=== PATIENT | male | born 1980 | race Caucasian/White ===

== ENCOUNTER 2017-05-24 09:27 | Inpatient (IN) | payer MEDICAID ==
[~2017-05-24] VITALS: Ht 175.3 cm; Wt 108.9 kg
--- NOTE | 2017-05-24 09:29 | NUR ---
Pt biba [facility], placed in bed 2. [place] [employer] at bedside.
[2017-05-24 09:31] VITALS: BP 155/93
--- NOTE | 2017-05-24 09:32 | NUR ---
37M BIBA FROM HOME C/O SUICIAL IDEATION X TODAY; PT PLACED ON 5150 HOLD BY MOSES CHAVEZ AT 0915 TODAY. PER PD, PT WAS FOUND AT RESIDENCE SITTING IN A CHAIR WITH A ROPE AROUND HIS NECK. PER PD, PT CALLED PD TO HOUSE; PT NOTED WITH ERYTHEMA AROUND NECK FROM ROPE AT THIS TIME; NO ACTIVE BLEEDING OR OPEN WOUND TO NECK AT THIS TIME; PT STATES " MY FAMILY THINKS I WANT TO HURT THEM AND I DON'T KNOW WHY"; WHEN ASKED IF PATIENT HAVING IDEAS OF SUICIDAL IDEATION, PT STATES " MY MIND IS JUST BLANK RIGHT NOW"; PT AA&OX4, PERRLA AT THIS TIME; BL LUNG SOUNDS CLEAR, RR EVEN/UNLABORED, SKIN IS WARM/DRY/INTACT AT THIS TIME; PT C/O ACHING PAIN TO LEFT SHOULDER, NON-RADIATING, 2/10 FROM FALL X 1 YEAR; PT STATES NO N/V/D AT THIS TIME; PT CALM/COOPERATIVE AT THIS TIME; ALL POTENTIAL HARMFUL OBJECTS REMOVED FROM PATIENT'S ROOM AT THIS TIME; PT CHANGED INTO GOWN, RESTING IN BED WITH HOB ELEVATED AND IN LOWEST POSITION; POSITIONED FOR COMFORT; SITTER AT BEDSIDE; ER MD MADE AWARE OF STATUS. WILL CONTINUE TO MONITOR. Addendum: 05/24/17 at 0955 by InspireMD LEFT RADIAL PULSE +3, LEFT CAP REFILL IMMEDIATE, NO LOSS OF SENSATION OR ROM TO LEFT ARM AT THIS TIME.
--- NOTE | 2017-05-24 09:32 | NUR ---
PT NOT PLACED ON PULSE OXIMETRY OR INTERACTIVE PROJECT MANAGER AT THIS TIME WIRES REMOVED FROM PT'S ROOM; ER MD DR. HORVATH NOTIFIED.
--- NOTE | 2017-05-24 09:48 | NUR ---
LAB AT BEDSIDE.
--- NOTE | 2017-05-24 09:54 | NUR ---
ER MD DR. HORVATH EVALUATING PT AT BEDSIDE.
--- NOTE | 2017-05-24 09:55 | NUR ---
Arsalan love in ED - 05/24/17 at 0955 by MEDRAYO LEFT RADIAL PULSE +3, LEFT CAP REFILL IMMEDIATE, NO LOSS OF SENSATION OR ROM TO LEFT ARM AT THIS TIME.
[2017-05-24 10:12] LABS: HEMATOCRIT 44.5 % (36-52); HEMOGLOBIN 14.9 g/dL (12.0-18.0); MEAN CORPUSCULAR HEMOGLOBIN 30 pg (27-31); MEAN CORPUSCULAR HGB CONC 34 g/dL (33-37); MEAN CORPUSCULAR VOLUME 88 fL (80-94); PLATELET COUNT (AUTO) 221 K/uL (140-450); RED BLOOD CELL COUNT(AUTO) 5.05 MIL/uL (4.20-6.10); RED CELL DISTRIBUTION WIDTH 11.6 % (11.6-13.7); WHITE BLOOD COUNT (AUTO) 5.4 K/uL (4.8-10.8)
[2017-05-24 10:33] LABS: ALBUMIN 3.8 g/dL (3.4-5.0); ANION GAP 17.1 (8-16); ASPARTATE AMINOTRANSFERASE 23 U/L (15-37); CHLORIDE 104 mmol/L (98-107); CREATININE 0.8 mg/dL (0.7-1.3); GFR ARICAN-AMERICAN 139 mL/min (>90); GLUCOSE 106 mg/dL (74-106); POTASSIUM 4.1 mmol/L (3.5-5.1); SODIUM SERUM 142 mmol/L (136-145); TOTAL BILIRUBIN 0.5 mg/dL (0.0-1.0); UREA NITROGEN, BLOOD 16 mg/dL (7-18)
--- NOTE | 2017-05-24 10:33 | NUR ---
PT APPEARS TO BE RESTING COMFORTABLY IN BED; RR EVEN/UNLABORED; PT CALM AT THIS TIME; POSITIONED FOR COMFORT; SITTER AT BEDSIDE; WILL CONTINUE TO MONITOR.
[2017-05-24 10:35] LABS: ACETAMINOPHEN < 0.5 ug/ml (10-30); SALICYLATE < 2.8 mg/dL (2.8-20.0)
[2017-05-24 10:38] LABS: LYMPHOCYTES % (MANUAL) 23 % (20-46); MONOCYTES % (MANUAL) 7 % (5-12)
--- NOTE | 2017-05-24 11:35 | NUR ---
PT APPEARS TO BE RESTING COMFORTABLY IN BED; RR EVEN/UNLABORED; POSITIONED FOR COMFORT; SITTER IN PLACE; WILL CONTINUE TO MONITOR.
[2017-05-24 12:04] LABS: APPEARANCE,URINE CLEAR (CLEAR); BILIRUBIN,URINE NEGATIVE (NEGATIVE); BLOOD, URINE NEGATIVE (NEGATIVE); COLOR,URINE YELLOW (YELLOW); LEUKOCYTE ESTERASE ,URINE NEGATIVE (NEGATIVE); NITRITE, URINE NEGATIVE (NEGATIVE); UGLUCOSE NEGATIVE (NEGATIVE)
[2017-05-24 12:14] LABS: BARBITURATE, URINE NEG. ng/ml (NEG <=200); BENZODIAZEPINE, URINE NEG. ng/mL (NEG <=200); CANNABINOID, URINE NEG. ng/mL (NEG <=50); COCAINE, URINE NEG. ng/mL (NEG <=300); OPIATE, URINE NEG. ng/mL (NEG <=2000); PHENCYCLIDINE SCREEN,URINE NEG. ng/mL (NEG <=25)
--- NOTE | 2017-05-24 12:33 | NUR ---
PT APPEARS TO BE RESTING COMFORTABLY IN BED; RR EVEN/UNLABORED; POSITIONED FOR COMFORT; SITTER IN PLACE; WILL CONTINUE TO MONITOR.
[2017-05-24 12:59] LABS: RBC,URINE NONE SEEN /HPF (0-5); WBC,URINE 0-5 (RARE) /HPF (0-5)
--- NOTE | 2017-05-24 13:02 | NUR ---
Pt medically cleared by Dr. Kohli.
--- NOTE | 2017-05-24 13:30 | NUR ---
PT APPEARS TO BE RESTING COMFORTABLY IN BED; RR EVEN/UNLABORED; POSITIONED FOR COMFORT; SITTER IN PLACE; WILL CONTINUE TO MONITOR.
--- NOTE | 2017-05-24 14:30 | NUR ---
PT APPEARS TO BE RESTING COMFORTABLY IN BED; RR EVEN/UNLABORED; POSITIONED FOR COMFORT; SITTER IN PLACE; WILL CONTINUE TO MONITOR.
--- NOTE | 2017-05-24 15:30 | NUR ---
FOOD TRAY PROVIDED TO PT WITH STYROFOAM AND PLASTIC UTENSILS; PT APPEARS TO BE RESTING COMFORTABLY IN BED; RR EVEN/UNLABORED; POSITIONED FOR COMFORT; SITTER IN PLACE; WILL CONTINUE TO MONITOR.
--- NOTE | 2017-05-24 15:47 | NUR ---
PYSCHIATRIST DR. DAILY EVALUATING PT AT BEDSIDE.
[2017-05-24] MEDS ORDERED: LORazepam 1 MG TAB PO ONE (15:50)
--- NOTE | 2017-05-24 16:03 | NUR ---
PER DR. DAILY, PT TO STAY ON 5150 HOLD AT THIS TIME; ER MD DR. HOVRATH NOTIFIED.
--- NOTE | 2017-05-24 16:32 | NUR ---
PT APPEARS TO BE RESTING COMFORTABLY IN BED; RR EVEN/UNLABORED; POSITIONED FOR COMFORT; SITTER IN PLACE; WILL CONTINUE TO MONITOR.
[2017-05-24] MEDS ORDERED: ONDANSETRON 4 MG/2 ML VIAL IVP PRN (17:35)
[2017-05-24] MEDS ORDERED: DOCUSATE SODIUM 100 MG GELCAP PO PRN (17:35)
[2017-05-24] MEDS ORDERED: ACETAMINOPHEN 325 MG TAB PO PRN (17:35)
--- NOTE | 2017-05-24 18:20 | NUR ---
Patient will be admitted to care of DR. LANDAVERDE. Admited to MED-SURG. Will go to room 109B. Belongings list completed. Report to YANNI RASHID AT BEDSIDE.
[2017-05-24 18:30] VITALS: BP 127/89
--- NOTE | 2017-05-24 18:30 | NUR ---
RECEIVED PT FROM ER. BEDSIDE REPORT GIVEN. VITALS TAKEN, WITHIN NORMAL LIMIT. BP 127/89, 98%, HR 93, RR 20, PAIN 0/10. MRSA DONE. DINNER ORDERED FROM KITCHEN. BED ALARM SET. PT IS RESTING CALMLY IN BED. DENIES ANY SUICIDAL IDEATION AT THIS TIME. PT STATED HAVING A LITTLE ANXIETY AND ATIVAN REALLY HELPED. MADE PT AWARE HE HAS SCHEDULED PO ATIVAN Q8H, NEXT DOSE IS DUE BETWEEN 8-9PM. IF HE IS HAVING A LOT OF ANXIETY, WE HAVE MEDICATION FOR THAT, TOO. PT WAS ORIENTED TO THE ROOM. NO S/S OF ACUTE DISTRESS. WILL CONTINUE TO MONITOR. 1:1 SITTER AT BEDSIDE.
[2017-05-24] MEDS: NACL 0.9% 1,000 ML IV SCH (18:50)
--- NOTE | 2017-05-24 19:30 | NUR ---
BEDSIDE REPORT GIVEN TO HEAVY TRUCK MECHANIC NURSE. IVF INFUSING WELL. PT IN STABLE CONDITION.
--- NOTE | 2017-05-24 19:31 | NUR ---
RECEIVED REPORT AT BEDSIDE FROM DAY SHIFT NURSE. PT A/OX4, ON ROOM AIR. PT AMBULATORY WITH STEADY GAIT. PT HAS IV TO LEFT HAND 20G, INFUSING NS@120ML/HR. PT SKIN IS INTACT. SAFETY PRECAUTIONS IN PLACE. UPDATED BOARD. SUICIDE PRECAUTIONS IN PLACE, 1:1 SITTER IN ROOM. VITAL SIGNS WITHIN NORMAL LIMITS. PT IN STABLE CONDITION, NO SIGNS OF DISTRESS NOTED. BED IN LOW POSITION, CALL LIGHT WITHIN REACH. WILL CONTINUE TO MONITOR.
[2017-05-24 20:00] VITALS: BP 139/90
[2017-05-24] MEDS: LORazepam 1 MG TAB PO SCH (21:09)
[2017-05-24] MEDS: QUEtiapine FUMARATE 25 MG TAB PO SCH (21:10)
--- NOTE | 2017-05-24 21:15 | NUR ---
ADMINISTERED SCHEDULED MEDICATIONS, PT TOLERATED WELL. PT IN STABLE CONDITION, NO SIGNS OF DISTRESS NOTED. BED IN LOW POSITION, CALL LIGHT WITHIN REACH. WILL CONTINUE TO MONITOR.
[2017-05-24 23:27] LABS: AMYLASE 39 U/L (25-115); CHOL/HDL RATIO 4.3 (1-4.5); FREE T4 (FREE THYROXINE) 1.15 ng/dL (0.76-1.46); HDL CHOLESTEROL 40 mg/dL (40-60); LDL (CALC) 93 mg/dL (60-100); LIPASE 145 U/L (73-393); MAGNESIUM 1.9 mg/dL (1.8-2.4); PHOSPHORUS 4.2 mg/dL (2.5-4.9); THYROID STIMULATING HORMONE 0.88 uIU/mL (0.34-3.74); TRIGLYCERIDES 185 mg/dL (30-150)
--- NOTE | 2017-05-25 | NUR ---
PT VITAL SIGNS STABLE. PT IN STABLE CONDITION, NO SIGNS OF DISTRESS NOTED. 1:1 SITTER IN ROOM, BED IN LOWEST POSITION. WILL CONTINUE TO MONITOR.
[2017-05-25 00:52] VITALS: BP 135/88
[2017-05-25] MEDS: NACL 0.9% 1,000 ML IV SCH (02:55)
[2017-05-25] MEDS: LORazepam 1 MG TAB PO SCH ×3 (05:13→21:36)
--- NOTE | 2017-05-25 05:15 | NUR ---
ADMINISTERED SCHEDULED MEDICATION, PT TOLERATED WELL. 1:1 SITTER IN ROOM. PT IN STABLE CONDITION, NO SIGNS OF DISTRESS NOTED.
--- NOTE | 2017-05-25 07:10 | NUR ---
ENDORSED PT TO DAY SHIFT RN FOR CONTINUITY OF CARE, PT IN STABLE CONDITION.
--- NOTE | 2017-05-25 07:15 | NUR ---
RECEIVED REPORT FROM NIGHTSHIFT NURSE AT BEDSIDE. PATIENT IS ASLEEP AT THIS TIME BUT AROUSABLE. PATIENT IS A&OX4. PATIENT SHOWS NO IDEATION OF HURTING HIMSELF AT THIS TIME. SUICIDE PRECAUTION IN PLACE. PATIENT IS ON 1:1 SITTER. PATIENT IS IN STABLE CONDITION. BED IS LOWERED AND CALL LIGHT IS WITHIN REACH. WILL CONTINUE TO MONITOR PATIENT.
[2017-05-25 07:22] LABS: BASOPHILS # (AUTO) 0.2 K/uL (0.00-0.22); BASOPHILS % (AUTO) 3.7 % (0.0-2.0); EOSINOPHILS # (AUTO) 0.2 K/uL (0-0.4); EOSINOPHILS % (AUTO) 3.4 % (0.0-4.0); LYMPHOCYTES # (AUTO) 1.8 K/uL (2.0-11.5); LYMPHOCYTES % (AUTO) 36.2 % (20.5-51.1); MEAN CORPUSCULAR HEMOGLOBIN 31 pg (27-31); MEAN CORPUSCULAR HGB CONC 34 g/dL (33-37); MEAN CORPUSCULAR VOLUME 90 fL (80-94); MONOCYTES # (AUTO) 0.4 K/uL (0.8-1.0); MONOCYTES % (AUTO) 7.7 % (1.7-9.3); NEUTROPHILS # (AUTO) 2.5 K/uL (1.8-7.7); PLATELET COUNT (AUTO) 186 K/uL (140-450); RED BLOOD CELL COUNT(AUTO) 4.53 MIL/uL (4.20-6.10); RED CELL DISTRIBUTION WIDTH 11.9 % (11.6-13.7); WHITE BLOOD COUNT (AUTO) 5.1 K/uL (4.8-10.8)
[2017-05-25 07:45] LABS: ANION GAP 11.2 (8-16); CARBON DIOXIDE 28.9 mmol/L (21-32); POTASSIUM 4.1 mmol/L (3.5-5.1)
[2017-05-25 07:46] LABS: CREATININE 0.9 mg/dL (0.7-1.3)
[2017-05-25 08:00] VITALS: BP 129/71
--- NOTE | 2017-05-25 08:03 | NUR ---
SPOKE WITH ART FROM [facility]. HE IS AWARE OF THIS PATIENT AND IS LOOKING FOR PLACEMENT. HE ASKED ME TO FAX HIM THE FACE SHEET, ORDER AND 6460 HOLD WHICH I DID TO [phone] PHONE [phone].
--- NOTE | 2017-05-25 08:41 | NUR ---
PATIENT HAS BEEN SCREENED AND CATEGORIZED LOW NUTRITION RISK. PATIENT WILL BE SEEN WITHIN 7 DAYS OF ADMISSION. 05/30/[address]
[2017-05-25] MEDS: MULTIVITAMIN 1 TAB PO SCH (09:50)
[2017-05-25] MEDS: THIAMINE 100 MG TAB PO SCH (09:50)
[2017-05-25] MEDS: PARoxetine 10 MG TAB PO SCH (09:51)
[2017-05-25] MEDS: QUEtiapine FUMARATE 25 MG TAB PO SCH ×2 (09:51→21:36)
[2017-05-25] MEDS: FOLIC ACID 1 MG TAB PO SCH (09:52)
[2017-05-25 10:01] LABS: PHOSPHORUS 3.2 mg/dL (2.5-4.9)
[2017-05-25] MEDS: LORazepam 2 MG/ML VIAL IVP PRN ×2 (10:09→15:08)
--- NOTE | 2017-05-25 13:00 | NUR ---
PATIENT IS ASLEEP AT THIS TIME. PATIENT IS IN STABLE CONDITION. 1:1 SITTER IS PRESENT. WILL CONTINUE TO MONITOR PATIENT.
[2017-05-25 14:32] LABS: PROTHROMBIN TIME 9.3 secs (10.8-13.4)
[2017-05-25] MEDS: LACTULOSE 20 GM/30 ML UDC PO SCH ×2 (14:40→15:07)
[2017-05-25 15:56] VITALS: BP 129/75
--- NOTE | 2017-05-25 19:16 | NUR ---
PT KEPT CLEAN, DRY AND COMFORTABLE. NEEDS ATTENDED. NO SUICIDAL IDEATION NOTED ON SHIFT. WILL ENDORSE TO NEXT SHIFT. PT ON STABLE CONDITION. FOR CONTINUITY OF CARE. NO SOB NOTED ON SHIFT. DENIES ANY PAIN OR DISCOMFORT AT THIS TIME.
--- NOTE | 2017-05-25 19:30 | NUR ---
Patient's Plan of Care was discussed and reviewed with SANDER AND BUFFER: LINUS
--- NOTE | 2017-05-25 20:10 | NUR ---
CHELSEA. REPORT FROM CHARGE NURSE YUE, PATIENT IS SLEEPING COMFORTABLY IN BED, RESPIRATION EVEN AND UNLABORED. IV SALINE LOCK AT THE LEFT HAND G 20, PATENT AND INTACT. NO APPEARANCE OF PAIN NOTED. SITTER AT THE BEDSIDE MONITORING PATIENT. SITTING ON THE CHAIR IN THE ROOM. WILL CONTINUE TO MONITOR BEING THE NEW NURSE SITTER FOR THE PATIENT, WILL ENSURE SAFETY DURING SHIFT.
--- NOTE | 2017-05-25 20:20 | NUR ---
FATHER CAME AND WAKEN UP PATIENT. DOES NOT LIKE FOOD IN THE MEAL TRAY. SANDWICH GIVEN INSTEAD.
--- NOTE | 2017-05-25 20:30 | NUR ---
A/OX2, CANNOT REMEMBER WHAT DAY AND DATE TODAY BUT KNOWS THE YEAR. VERBALIZED NO INTENTION OF HARMING SELF AND OTHERS, NOT HEARING VOICES BUT FEELS ANXIOUS AND DEPRESSED.
--- NOTE | 2017-05-25 21:00 | NUR ---
LEFT THE ROOM TO GO HOME.
--- NOTE | 2017-05-25 21:36 | NUR ---
NIGHT MEDICATIONS GIVEN, COOPERATIVE.
--- NOTE | 2017-05-25 22:30 | NUR ---
SLEEPING COMFORTABLY IN BED, SNORING.
[2017-05-26] VITALS: BP 140/90
--- NOTE | 2017-05-26 02:00 | NUR ---
STILL SLEEPING COMFORTABLY IN BED.
[2017-05-26] MEDS: LORazepam 1 MG TAB PO SCH ×4 (05:39→21:20)
--- NOTE | 2017-05-26 05:39 | NUR ---
WAKEN UP TO TAKE AM MEDICATION, WENT BACK TO SLEEP AFTER DRINKING PILL.
--- NOTE | 2017-05-26 06:00 | NUR ---
STILL SLEEPING COMFORTABLY IN BED. RESPIRATION EVEN AND UNLABORED. STAINED GLASS INSTALLER CAME TO DRAW BLOOD. COOPERATIVE. CONDITION REMAIN STABLE. NO SUICIDAL BEHAVIOR NOTED DURING SHIFT. ENDORSED TO AM SITTER FOR MONITORING.
[2017-05-26 06:31] LABS: HEMATOCRIT 44.3 % (36-52); HEMOGLOBIN 14.8 g/dL (12.0-18.0); MEAN CORPUSCULAR HEMOGLOBIN 30 pg (27-31); MEAN CORPUSCULAR HGB CONC 33 g/dL (33-37); MEAN CORPUSCULAR VOLUME 90 fL (80-94); PLATELET COUNT (AUTO) 226 K/uL (140-450); RED BLOOD CELL COUNT(AUTO) 4.91 MIL/uL (4.20-6.10); WHITE BLOOD COUNT (AUTO) 4.8 K/uL (4.8-10.8)
--- NOTE | 2017-05-26 07:05 | NUR ---
ENDORSED TO YANNI VAZQUEZ FOR CONTINUITY OF CARE.
--- NOTE | 2017-05-26 07:15 | NUR ---
REPORT RECEIVED FROM AUTOMATION TEST ENGINEER, PT SLEEPING QUIETLY IN NAD, RESP EVEN UNLABORED ON RA, SKIN WARM DRY COLOR WNL, AROUSES EASILY, NO C/O PAIN OR DISCOMFORT, PLAN OF CARE REVIEWED, INITIAL ASSESSMENT DONE, 1:[address], CALL PORTILLO WITHIN REACH, SIDE RAILS UP, BED LOCKED IN LOW POSITION, WILL CONTINUE TO MONITOR.
[2017-05-26 07:51] LABS: ANION GAP 10.1 (8-16); CARBON DIOXIDE 29.1 mmol/L (21-32); POTASSIUM 4.2 mmol/L (3.5-5.1)
[2017-05-26 07:52] LABS: CREATININE 0.9 mg/dL (0.7-1.3); MAGNESIUM 2.1 mg/dL (1.8-2.4); PHOSPHORUS 3.3 mg/dL (2.5-4.9)
[2017-05-26 08:00] VITALS: BP 127/80
[2017-05-26] MEDS: LORazepam 2 MG/ML VIAL IVP PRN ×3 (08:13→20:34)
[2017-05-26] MEDS: THIAMINE 100 MG TAB PO SCH (08:13)
[2017-05-26] MEDS: MULTIVITAMIN 1 TAB PO SCH (08:13)
[2017-05-26] MEDS: FOLIC ACID 1 MG TAB PO SCH (08:13)
[2017-05-26] MEDS: CALCIUM CARBONATE 500 MG TAB PO SCH (08:13)
[2017-05-26] MEDS: QUEtiapine FUMARATE 25 MG TAB PO SCH (08:14)
[2017-05-26] MEDS: PARoxetine 10 MG TAB PO SCH (08:21)
--- NOTE | 2017-05-26 08:23 | NUR ---
PT SITTING UP EATING BREAKFAST, STATES HE FEELS VERY ANXIOUS, ATIVAN PRN GIVEN AT THIS TIME.
[2017-05-26 08:50] LABS: EOSINOPHILS % (MANUAL) 2 % (0-4); LYMPHOCYTES % (MANUAL) 41 % (20-46); MONOCYTES % (MANUAL) 4 % (5-12)
--- NOTE | 2017-05-26 12:45 | NUR ---
PT SLEEPING, ATIVAN HELD AT THIS TIME.
--- NOTE | 2017-05-26 14:30 | NUR ---
DR ORELLANA AT BEDSIDE
--- NOTE | 2017-05-26 14:45 | NUR ---
PT ASKED TO CALL HIS , PHONE PROVIDED TO MAKE A CALL.
--- NOTE | 2017-05-26 15:37 | NUR ---
LEFT BEDSIDE TO GO HOME SAYING "I DON'T THINK HE WANTS TO SEE ME TODAY".
[2017-05-26 15:59] VITALS: BP 135/83
--- NOTE | 2017-05-26 16:12 | NUR ---
PT STATES HE FEELS VERY "ANXIOUS AND I MIGHT START RUNNING", PT REQUESTS IV ATIVAN, IV ATIVAN GIVEN PER PRN ORDER, PT STATES IT HELPS ME CALM DOWN, PT VERBALLY AGREES NOT TO RUN AWAY OR HURT HIMSELF, PT REMAINS ON 1;1 WATCH, ASKED TO CALL , PHONE PROVIDED TO MAKE A CALL, PT STATES HIS " AND 16YO DAUGHTER IS COMING TO VISIT AND BRING ME FOOD", PT SPEAKS CALMLY AND CLEARLY WITH SLIGHT SMILE, NO AGGRESSIVE BEHAVIOR NOTED. WILL CONTINUE TO MONITOR.
--- NOTE | 2017-05-26 17:05 | NUR ---
PT SLEEPING QUIETLY IN NAD, RESP EVEN UNLABORED, PT REMAINS ON 1:1 WATCH, SAFETY MEASURES IN PLACE, WILL CONTINUE TO MONITOR.
--- NOTE | 2017-05-26 18:14 | NUR ---
DAUGHTER AND TO BEDSIDE.
--- NOTE | 2017-05-26 18:40 | NUR ---
UP OUT OF BED WITHOUT PROBLEM, AMBULATES WITH STEADY GAIT, GOWN CHANGED, BLANKET CHANGED, AND DAUGHTER REMAINS AT BEDSIDE.
--- NOTE | 2017-05-26 19:18 | NUR ---
REPORT GIVEN TO WINDOW INSTALLER NURSE GAMALIEL BHAT IN STABLE CONDITION.
--- NOTE | 2017-05-26 19:19 | NUR ---
ASSUMED CARE OF PATIENT NURSE AND SITTER FOR THE SHIFT. RECD. RESTING IN BED, AWAKE, ALERT, CONVERSING WITH , DAUGHTER SITTING NEAR WALL SIDE. IV SALINE LOCK AT THE LEFT HAND G20, PATENT AND INTACT. STILL VERY DEPRESSED, STRETCHED OUT HIS LEFT ARM AND STATED "CAN YOU INJECT WITH SOMETHING THAT WOULD STOP MY HEART?" PLAN OF CARE FOR THE SHIFT DISCUSSED. VERBALIZED UNDERSTANDING. DENIES PAIN AT THIS TIME 010.
--- NOTE | 2017-05-26 19:30 | NUR ---
Patient's Plan of Care was discussed and reviewed with NEW BUSINESS CLERK: LINUS.
--- NOTE | 2017-05-26 19:45 | NUR ---
AND DAUGHTER LEFT ROOM.
--- NOTE | 2017-05-26 20:00 | NUR ---
PATIENT COVERING HIS BODY AND FACE WITH A BLANKET, NOTICE KEEP ON MOVING. WENT TO PATIENT AND ASKED HOW HE IS. TAKE OUT BLANKET FROM FACE AND FOUND PATIENT'S NECK TIED TO THE SIDE RAILS. CALLED FOR HELP [facility]NI RUIZ AND [facility] N[facility] CAME. ADVISED PATIENT TO RELAX AND SPIRITUAL ENCOURAGEMENT GIVEN. Addendum: 05/26/17 at 2303 by Felicia Samaniego LVN CORRECTION OF ENTRY: FOUND PATIENT'S NECK TIED TO THE SIDE RAIL WITH A BLANKET.
[2017-05-26 20:30] VITALS: BP 127/70
--- NOTE | 2017-05-26 20:34 | NUR ---
VERY AGITATED, MEDICATED WITH ATIVAN ORDERED. GIVEN BY YANNI BHAT.
--- NOTE | 2017-05-26 20:45 | NUR ---
WENT TO BATHROOM, ABLE TO HAVE BM.
[2017-05-26] MEDS ORDERED: QUEtiapine FUMARATE 25 MG TAB PO SCH (21:00)
--- NOTE | 2017-05-26 21:00 | NUR ---
WANTS TO GO OUT OF ROOM AND WALK IN THE HALLWAY. EXPLAINED THAT IT IS THE PROTOCOL FOR PATIENT ON 5150, NOT TO WALK IN THE HALLWAY.
--- NOTE | 2017-05-26 21:05 | NUR ---
WALK OUT OF THE ROOM, FOLLOWED PATIENT, ROASTER SUPERVISOR GAVE AND CHARGE NURSE YUE CAME. PATIENT IS WANTS TO GO OUT OF ALARM DOORS. ROASTER SUPERVISOR GAVE PERSUADE PATIENT TO GO BACK TO HIS ROOM BUT REFUSED. JUST REMAIN STANDING AND DOES NOT WANT TO GO BACK NO MATTER A LOT OF EXPLANATION GIVEN.
--- NOTE | 2017-05-26 21:15 | NUR ---
NURSE MOTION GRAPHICS DESIGNER REQUESTED TED TO CALL FOR YOKASTA TRACY.
[2017-05-26] MEDS ORDERED: HALOPERIDOL IM 5 MG/ML VIAL IM PRN (21:20)
--- NOTE | 2017-05-26 21:20 | NUR ---
SECURITY CAME WITH AND ALSO ER TEAM, STILL REFUSING TO GO BACK TO HIS ROOM. ER CHARGE NURSE ASSISTED PATIENT TO HIS ROOM BUT REFUSED TO GO BACK TO BED.
--- NOTE | 2017-05-26 21:25 | NUR ---
MOSES VILLAGOMEZS CAME REQUESTED BY MOVERS MARISSA. SPOKE WITH PATIENT, DISCUSSED PATIENT 5150 CASE, BUT STILL REFUSED TO GO BACK TO BED. LEFT AFTER FEW MINUTES.
[2017-05-26] MEDS ORDERED: HALOPERIDOL IM 5 MG/ML VIAL ONE (21:30)
--- NOTE | 2017-05-26 21:31 | NUR ---
SITTING IN CHAIR, AGREED TO BE MEDICATED WITH HALDOL 5 MG. IM ORDERED BY DR. PEÑA.
--- NOTE | 2017-05-26 21:34 | NUR ---
ABLE TO PERSUADE TO GO BACK AND LAY IN BED.
--- NOTE | 2017-05-26 21:50 | NUR ---
SLEEPING COMFORTABLY IN BED.
[2017-05-27] VITALS: BP 112/84
--- NOTE | 2017-05-27 | NUR ---
STILL SLEEPING COMFORTABLY, VS STABLE.
[2017-05-27] MEDS: LORazepam 1 MG TAB PO SCH ×3 (04:41→20:20)
--- NOTE | 2017-05-27 04:41 | NUR ---
WAKEN UP, DUE PO ATIVAN GIVEN. WENT BACK TO SLEEP.
--- NOTE | 2017-05-27 07:05 | NUR ---
STILL SLEEPING COMFORTABLY. CONDITION REMAIN STABLE. ENDORSED TO YANNI VAZQUEZ FOR CONTINUITY OF CARE.
--- NOTE | 2017-05-27 07:25 | NUR ---
REPORT RECEIVED FROM TIRE CORD WEAVER, PT SLEEPING QUIETLY IN NAD, RESP EVEN UNLABORED ON RA, SKIN WARM DRY COLOR WNL, IV SL'D, SITE WNL, PT AROUSED EASILY, VERBALLY CONTRACTS FOR SAFETY, PLAN OF CARE REVIEWED, DENIES PAIN OR DISCOMFORT, SAFETY MEASURES IN PLACE, PT WITH 1:1 SITTER AT BEDSIDE, SIDE RAILS UP, BED LOCKED IN LOW POSITION, WILL CONTINUE TO MONITOR.
[2017-05-27 08:00] VITALS: BP 103/58
[2017-05-27] MEDS: PARoxetine 10 MG TAB PO SCH (09:21)
[2017-05-27] MEDS: FOLIC ACID 1 MG TAB PO SCH (09:22)
[2017-05-27] MEDS: THIAMINE 100 MG TAB PO SCH (09:22)
[2017-05-27] MEDS: QUEtiapine FUMARATE 100 MG TAB PO SCH ×2 (09:22→20:20)
[2017-05-27] MEDS: CALCIUM CARBONATE 500 MG TAB PO SCH (09:22)
[2017-05-27] MEDS: MULTIVITAMIN 1 TAB PO SCH (09:22)
--- NOTE | 2017-05-27 09:22 | NUR ---
AM MEDS GIVEN, PT ASIYA WELL, PT STATES HE WILL EAT BREAKFAST LATER, DENIED ANY IMMEDIATE NEEDS AND WENT BACK TO SLEEP, PT REMAINS ON 1:1 WATCH, ALL SAFETY AND SUICIDE PRECAUTIONS IN PLACE, WILL CONTINUE TO MONITOR.
--- NOTE | 2017-05-27 11:20 | NUR ---
PT SLEEPING QUIELTY IN NAD, REP EVEN UNLABORED ON ROOM AIR, SKIN WARM DRY COLOR WNL, PT REMAINS ON 1:1 WATCH, NO C/O PAIN OR DISCOMFORT, WILL CONTINUE TO MONITOR.
--- NOTE | 2017-05-27 12:48 | NUR ---
PT SITTING UP EATING LUNCH, DENIES PAIN OR DISCOMFORT, DENIES ANY IMMMEDIATE NEEDS, WILL CONTINUE TO MONITOR.
--- NOTE | 2017-05-27 15:20 | NUR ---
[facility] NO [facility] AVAILABLE AT THIS TIME BUT REQUESTED THE LATEST PSYCH EVAL , DR ORELLANA PSYCHOLOGIST EVALUATED PATIENT ON 05/26 FAXED THE PROGRESS NOTE THAT STATED PT NEEDS [phone] TO [phone].
[2017-05-27 16:00] VITALS: BP 104/59
--- NOTE | 2017-05-27 18:06 | NUR ---
PT RESTING QUIETLY IN NAD, RESP EVEN UNLABORED, SKIN WARM DRY COLOR WNL, PT APPEARED TO BE SLEEPING MOST OF THE DAY TODAY, AROUSED FOR LUNCH AND DINNER, AMBULATED TO BATHROOM X2 WITH STEADY GAIT, NO AGGRESSIVE BEHAVIORS OR SUICIDE ATTEMPT TODAY, PT REMAINS ON 1;1 WATCH, ALL SAFETY AND SUICIDE PRECAUTIONS IN PLACE, WILL CONTINUE TO MONITOR.
--- NOTE | 2017-05-27 19:19 | NUR ---
REPORT GIVEN TO SALES ENABLEMENT LEAD NURSE GAMALIEL RAE IN STABLE CONDITION WITH 1:1 SITTER AT BEDSIDE.
--- NOTE | 2017-05-27 19:20 | NUR ---
PATIENT IS CURRENTLY RESTING IN BED AWAKE ALERT ORIENTED SITTER MARY JANE RAY 1:1 SITTER WATCHING OVER THE PATIENT. PATIENT CALM AT THIS.SAFETY ENVIRONMENT PROVIDED FOR THE PATIENT CALL LIGHT KEPT AWAY FROM THE PATIENT FOR SAFETY DOESN'T NEED IT HAS A SITTER AT BEDSIDE ATTENDING TO HIS NEEDS.
--- NOTE | 2017-05-27 19:35 | NUR ---
PATIENT FATHER CAME TO VISIT THE PATIENT AND SAT NEXT TO THE PATIENT.PATIENT CONTINUES TO BE MONITORED.
[2017-05-27 20:00] VITALS: BP 125/76
--- NOTE | 2017-05-27 20:00 | NUR ---
Patient's Plan of Care was discussed and reviewed with TOBACCO SIZER: KYRA SALAZAR
--- NOTE | 2017-05-27 20:20 | NUR ---
PATIENT REQUESTED TO HAVE HIS NIGHT TIME I ADMINISTERED HIS SCHEDULED NIGHT TIME MEDICATION. I ASKED THE PATIENT HOW ARE YOU FEELING IN SER[place]AN AND PATIENT STATES,"IM FEELING A LITTLE MORE CALM BUT STILL DEPRESSED." WILL CONTINUE TO MONITOR.
--- NOTE | 2017-05-27 23:32 | NUR ---
PATIENT SLEEPING COMFORTABLY IN BED SLEEPING. DIDIER RAY AT BEDSIDE. WILL CONTINUE TO MONITOR.
--- NOTE | 2017-05-28 00:54 | NUR ---
PATIENT SLEEPING COMFORTABLY IN BED CURRENTLY MONITORED BY MARY JANE HALEY SHE IS THE SITTER 1:1. NO SUICIDAL ATTEMPT OF THOUGHT VOICED BY PATIENT UP UNTIL NOW.
--- NOTE | 2017-05-28 02:00 | NUR ---
ROUNDS DONE PATIENT SLEEPING COMFORTABLY IN BED WILL CONTINUE TO MONITOR.
--- NOTE | 2017-05-28 04:16 | NUR ---
PATIENT SLEEPING DRILLING ASSISTANT SUDHA WATCHING OVER THE PATIENT.WILL CONTINUE TO MONITOR.
[2017-05-28 05:02] VITALS: BP 122/81
[2017-05-28] MEDS: LORazepam 1 MG TAB PO SCH ×3 (05:02→21:58)
--- NOTE | 2017-05-28 05:47 | NUR ---
PATIENT IS CURRENTLY SLEEPING IN BED PATIENT NOT VOICING ANY SUICIDAL THOUGHTS AND NO SUICIDE ATTEMPTS ON MY SHIFT.PATIENT NEEDS MET CONTINUES TO HAVE SITTER 1:1 SUDHA AT BEDSIDE.
--- NOTE | 2017-05-28 06:24 | NUR ---
DARIUS FROM THE LAB CURRENTLY DRAWING PATIENT'S LABS.PATIENT SLEEPING EASILY AWAKENED THIS MORNING STABLE. HAD NO SUICIDE ATTEMPT DURING THE NIGHT OR VOICED ANY ATTEMPT TO HARM HIMSELF OR STAFF.NO HALLUCINATIONS REPORTED DURING THE NIGHT. NURSE WALTON WILL BE TAKING CARE OF THE PATIENT AND WILL BE THE 1:1 SITTER AND REPORT WAS DONE AT BEDSIDE.
--- NOTE | 2017-05-28 06:24 | NUR ---
ASSUMED CONTINUITY OF CARE. NO SIGNS AND SYMPTOMS OF ACUTE DISTRESS NOTED. INITIAL ASSESSMENT DONE. CALM, QUIET AND COOPERATIVE. NO SUICIDAL THOUGHTS OBSERVED. KEEP SURROUNDINGS SAFE. EXPLAINED DIAGNOSIS, PLAN OF CARE, PAIN MANAGEMENT TEACHING, BED/BATHROOM. VERBALIZED UNDERSTANDING. CLOSELY MONITORED 1:1.
[2017-05-28 07:05] LABS: BASOPHILS # (AUTO) 0.3 K/uL (0.00-0.22); BASOPHILS % (AUTO) 4.9 % (0.0-2.0); EOSINOPHILS # (AUTO) 0.2 K/uL (0-0.4); HEMATOCRIT 45.8 % (36-52); HEMOGLOBIN 15.6 g/dL (12.0-18.0); LYMPHOCYTES # (AUTO) 2.1 K/uL (2.0-11.5); LYMPHOCYTES % (AUTO) 33.7 % (20.5-51.1); MEAN CORPUSCULAR HEMOGLOBIN 30 pg (27-31); MEAN CORPUSCULAR HGB CONC 34 g/dL (33-37); MEAN CORPUSCULAR VOLUME 89 fL (80-94); MONOCYTES # (AUTO) 0.5 K/uL (0.8-1.0); MONOCYTES % (AUTO) 7.3 % (1.7-9.3); NEUTROPHILS # (AUTO) 3.2 K/uL (1.8-7.7); NEUTROPHILS % (AUTO) 51.1 % (42.2-75.2); PLATELET COUNT (AUTO) 251 K/uL (140-450); RED BLOOD CELL COUNT(AUTO) 5.14 MIL/uL (4.20-6.10); RED CELL DISTRIBUTION WIDTH 11.8 % (11.6-13.7); WHITE BLOOD COUNT (AUTO) 6.3 K/uL (4.8-10.8)
[2017-05-28 07:47] LABS: ANION GAP 11.5 (8-16); CARBON DIOXIDE 30.9 mmol/L (21-32); CREATININE 0.9 mg/dL (0.7-1.3); POTASSIUM 4.4 mmol/L (3.5-5.1)
[2017-05-28 08:00] VITALS: BP 125/71
[2017-05-28 08:20] LABS: MAGNESIUM 2.1 mg/dL (1.8-2.4); PHOSPHORUS 3.2 mg/dL (2.5-4.9)
[2017-05-28] MEDS: FOLIC ACID 1 MG TAB PO SCH (08:34)
[2017-05-28] MEDS: THIAMINE 100 MG TAB PO SCH (08:34)
[2017-05-28] MEDS: CALCIUM CARBONATE 500 MG TAB PO SCH (08:34)
[2017-05-28] MEDS: MULTIVITAMIN 1 TAB PO SCH (08:34)
[2017-05-28] MEDS: QUEtiapine FUMARATE 100 MG TAB PO SCH ×2 (08:34→21:59)
[2017-05-28] MEDS: PARoxetine 10 MG TAB PO SCH (08:34)
--- NOTE | 2017-05-28 09:15 | NUR ---
PULLED OUT IV ACCESS ON LEFT HAND #20. NO ACTIVE BLEEDING NOTICED. REFUSED IV INSERTION.
--- NOTE | 2017-05-28 10:05 | NUR ---
CAESAR FROM [facility] CALLED AND SAID THAT NO BED AVAILABLE YET FOR PT.. INFORMED CHARGE NURSE LEONOR BOBO.
[2017-05-28 12:00] VITALS: BP 123/61
--- NOTE | 2017-05-28 13:30 | NUR ---
ABLE TO CONVINCED TO HAVE IV INSERTION. INSERTED IV ON LEFT FOREARM WITH GAUGE #22. TOLERATED WELL.
[2017-05-28] MEDS: LORazepam 2 MG/ML VIAL IVP PRN (14:01)
--- NOTE | 2017-05-28 14:08 | NUR ---
CM NOTE PER ART OF [facility]# [phone]: [facility]- PATIENT STILL ON THEIR WAIT LIST BUT NO BEDS AVAILABLE [facility] - NO BEDS AVAILABLE [facility] - NO BEDS AVAILABLE [facility] - NO BEDS AVAILABLE [facility] - NO BEDS AVAILABLE I GAVE ART THE NUMBER TO THE CHARGE NURSE ON THE NURSING FLOOR WHERE THE PATIENT IS IN CASE A BED BECOMES AVAILABLE AND PATIENT GETS ACCEPTED AT A PSYCH FACILITY AT A LATER TIME. CHARGE NURSE LEONOR LOPEZ.
--- NOTE | 2017-05-28 14:49 | NUR ---
TAYLOR [facility] CALLED AND ASKED FOR PT'S RECENT V/S. TAYLOR STATED THEY DO NOT HAVE A BED YET, BUT THEY WILL CALL IF EVER THEY CAN GIVE US A BED TODAY.
--- NOTE | 2017-05-28 14:55 | NUR ---
NON-COMPLIANT, TRIED TO GET OUT FROM ROOM, INSISTED TO GO HOME. TRIED TO CALM DOWN PT., BUT WAS UNSUCCESSFUL. CALLED SECURITY STAFF AND INFORMED CHARGE NURSE LEONOR BOBO. TREASURY REPRESENTATIVE -EARL CAME AND SPOKE TO PT.. PT. ABLE TO CONVINCE TO GO BACK INSIDE ROOM.
--- NOTE | 2017-05-28 15:10 | NUR ---
AQUEDUCT AND RESERVOIR KEEPER -EARL CALLED [facility] FOR ASSISTANCE REGARDING PT. NON-COMPLIANT BEHAVIOR. INFORMED CHARGE NURSE LEONOR BOBO.
--- NOTE | 2017-05-28 15:55 | NUR ---
NON-COMPLIANT. PULLED OUT IV ACCESS ON LEFT FOREARM GAUGE #22. REFUSED IV INSERTION. INFORMED CHARGE NURSE LEONOR BOBO.
--- NOTE | 2017-05-28 16:30 | NUR ---
PT. FATHER CAME AND SPOKE TO PT.. PT. STILL NON-COMPLIANT AND STILL INSISTED TO GO HOME. CALLED SECURITY STAFF. SECURITY STAFF -JEFFERY CAME.
--- NOTE | 2017-05-28 16:32 | NUR ---
PRISCILLA TOBACCO DRUMMER CAME AND SPOKE TO PT. AND PT. FATHER. PT. CALM, AND COOPERATIVE AT THIS TIME.
--- NOTE | 2017-05-28 16:50 | NUR ---
INFORMED DR. HERRERA THAT S[place]ILY [place]LAND ELECTRICAL ASSEMBLY TECHNICIAN CAME FOR PT. NON-COMPLIANT BEHAVIOR, TRIED TO GO HOME, PULLED IV TWICE, AND REFUSAL OF IV INSERTION.
--- NOTE | 2017-05-28 17:45 | NUR ---
NON-COMPLIANT, GOT OUT FROM ROOM AND WENT STRAIGHT OUT TO BACKDOOR AT ROOM 113. CALLED YOKASTA TRACY. SHINE WORKER -LOVE RAHMAN DIRECTOR -DINA RENDON SOME STAFF CAME. ABLE TO CONVINCED PT. TO GO BACK TO ROOM. KEEP COMFORTABLE AND CONTINUE TO MONITOR 1:1.
--- NOTE | 2017-05-28 17:50 | NUR ---
ROOM SERVICE SUPERVISOR -JOSIAH WENT INSIDE PT. ROOM AND SPOKE TO PT..
[2017-05-28] MEDS: HALOPERIDOL IM 5 MG/ML VIAL IM PRN (17:58)
--- NOTE | 2017-05-28 19:20 | NUR ---
BEDSIDE REPORT GIVEN TO CHEAL RENO -YANNI. IN STABLE CONDITION. PT. -SOLANGE ON BEDSIDE.
--- NOTE | 2017-05-28 19:30 | NUR ---
RECEIVED REPORT FROM AM NURSE. PER AM NURSE, PT WAS NONCOMPLIANT AND TRYING TO LEAVE THE HOSPITAL, HALDOL 2.5MG IM WAS GIVEN, PT IS NOW SLEEPING COMFORTABLY, NO S/S OF ACUTE DISTRESS, WILL MONITOR. NO IV ACCESS AT THIS TIME, MD AWARE. ALL NEEDS MET. 1:1 SITTER WITH CLOSE MONITORING MAINTAINED. ENVIRONMENT CHECKED, SAFETY MEASURES ENSURED.
[2017-05-28 20:00] VITALS: BP 121/72
--- NOTE | 2017-05-28 21:59 | NUR ---
PT SLEEPING COMFORTABLY, AROUSABLE TO NAME, NO S/S OF ACUTE DISTRESS. ADMINISTERED DUE MEDS WITH EDUCATION, PT STATED "OK," TOLERATED MEDS WELL. ALL NEEDS MET. 1:1 SITTER MAINTAINED, SAFETY MEASURES ENSURED.
[2017-05-29] VITALS: BP 124/72
--- NOTE | 2017-05-29 00:15 | NUR ---
PT SLEEPING COMFORTABLY, NO S/S OF ACUTE DISTRESS. ALL NEEDS MET. 1:1 SITTER WITH CLOSE MONITORING. SAFETY MEASURES ENSURED.
--- NOTE | 2017-05-29 02:52 | NUR ---
[facility]CEIV[facility], DISCUSSED PT DX 5150 HOLD FOR SI, DISCUSSED THAT PT HAS A 5150 FORM FOR DANGER TO SELF BY PD ON 05/24/17, AND THAT PT HAS BEEN SEEN BY DR ORELLANA WHO ORDERED TO CONTINUE 5150 HOLD FOR DANGER TO SELF ON 05/26/17. CHARGE NURSE MADE AWARE AND SPOKE WITH CALL CENTER. CALL CENTER TO FOLLOW UP WITH [facility]ERWATER WELDER.
--- NOTE | 2017-05-29 04:39 | NUR ---
PT SLEEPING COMFORTABLY, NO S/S OF ACUTE DISTRESS. ALL NEEDS MET. 1:1 SITTER WITH CLOSE MONITORING. SAFETY MEASURES ENSURED.
[2017-05-29] MEDS: LORazepam 1 MG TAB PO SCH ×2 (05:41→12:45)
--- NOTE | 2017-05-29 05:42 | NUR ---
ADMINISTERED DUE MED ATIVAN PO WITH EDUCATION. PT STATED OK, TOLERATED MED WELL. ALL NEEDS MET. 1:1 SITTER WITH CLOSE MONITORING MAINTED. SAFETY MEASURES ENSURED.
--- NOTE | 2017-05-29 06:25 | NUR ---
ASSUMED CONTINUITY OF CARE. NO SIGNS AND SYMPTOMS OF ACUTE DISTRESS NOTED. INITIAL ASSESSMENT DONE. PT. SLEEPING AT THIS TIME. NO DISCOMFORT NOTED. KEEP SURROUNDINGS SAFE. CLOSELY MONITORED 1:1.
--- NOTE | 2017-05-29 06:25 | NUR ---
ENDORSED PLAN OF CARE TO AM NURSE. CONDITION STABLE.
--- NOTE | 2017-05-29 07:41 | NUR ---
DR. LANDAVERDE, GROUP OF RESIDENTS MD, AND CHARGE NURSE CAME FOR THEIR AM ROUNDS. PT. CALM, QUIET AND COOPERATIVE. NO SUICIDAL IDEATION OBSERVED. KEEP COMFORTABLE ON BED AND CONTINUE MONITORING 1:1.
--- NOTE | 2017-05-29 07:50 | NUR ---
Patient's Plan of Care was discussed and reviewed with BILLET HEADER: KAEL SNOW
[2017-05-29 08:00] VITALS: BP 109/63
--- NOTE | 2017-05-29 08:42 | NUR ---
DR. HERRERA WENT INSIDE PT. ROOM AND SPOKE TO PT.. CALM, AND COOPERATIVE. NO ABNORMAL BEHAVIOR MANIFESTED. CONTINUE MONITORING.
--- NOTE | 2017-05-29 08:50 | NUR ---
INFORMED DR. HERRERA ABOUT DR. ORELLANA 5150 HOLD CRITERIA ON 05/26/17 AT 1443 AND IT WILL TODAY AT 1443. PER DR. HERRERA, DR. JEAN WILL COME TODAY FOR PT. RE-EVAL. INFORMED CHARGE NURSE IAN WADSWORTH -YANNI.
[2017-05-29] MEDS: QUEtiapine FUMARATE 100 MG TAB PO SCH ×2 (08:57→21:28)
[2017-05-29] MEDS: PARoxetine 10 MG TAB PO SCH (08:57)
[2017-05-29] MEDS: THIAMINE 100 MG TAB PO SCH (08:57)
[2017-05-29] MEDS: CALCIUM CARBONATE 500 MG TAB PO SCH (08:57)
[2017-05-29] MEDS: FOLIC ACID 1 MG TAB PO SCH (08:57)
[2017-05-29] MEDS: MULTIVITAMIN 1 TAB PO SCH (08:58)
[2017-05-29 12:00] VITALS: BP 125/64
--- NOTE | 2017-05-29 12:06 | NUR ---
PT. SISTER -VICENTE CAME AND BROUGHT FOOD TO PT.. PT. COMSUMED 95%. CALM AND COOPERATIVE. NO ABNORMAL BEHAVIOR SEEN. CLOSELY MONITORED PT. 1:1.
--- NOTE | 2017-05-29 14:40 | NUR ---
INFORMED DR. HERRERA THAT PT. STARTING TO GET AGITATED AT THIS TIME, AND PT. NO IV ACCESS. PER DR. HERRERA, OK TO GIVE HALDOL 2.5 MG IM. ALSO INFORMED CHARGE NURSE IAN BOBO. KEEP PT. FREE FROM INJURY.
[2017-05-29] MEDS: HALOPERIDOL IM 5 MG/ML VIAL IM PRN (14:45)
--- NOTE | 2017-05-29 16:10 | NUR ---
GOT UP FROM BED AND WENT TO BATHROOM. TOLERATED WELL. HAD STEADY GAIT AND BALANCE. CONTINUE TO MONITOR 1:1.
--- NOTE | 2017-05-29 16:20 | NUR ---
PT. FATHER CAME AND SPOKE TO PT.. PT. CALM AND COOPERATIVE. NO SUICIDAL THOUGHTS NOTED. CONTINUE MONITORING.
--- NOTE | 2017-05-29 16:34 | NUR ---
DR. HERRERA CAME AND SPOKE TO PT. AND PT. FATHER REGARDING PSYCH MD RE-EVALUATION. PT. CALM AND COOPERATIVE AT THIS TIME.
--- NOTE | 2017-05-29 19:05 | NUR ---
DR. ORELLANA CAME, REVIEWED PT. CHART AND SPOKE TO PT. AND PT. -AIDEN AT BEDSIDE.
--- NOTE | 2017-05-29 19:12 | NUR ---
BEDSIDE REPORT GIVEN TO LUIS BOBO. IN STABLE CONDITION. PT. -AIDEN AT BEDSIDE CLOSELY MONITORED BY CORY VELÁSQUEZ 1:1.
--- NOTE | 2017-05-29 19:45 | NUR ---
DR ORELLANA SAID THAT PT IS CLEARED AND CAN GO HOME. AWAITING MEDICAL CLEARANCE.
[2017-05-29 20:00] VITALS: BP 111/72
--- NOTE | 2017-05-29 20:00 | NUR ---
SEEN PT LYING IN BED. SPOUSE AT BEDSIDE. INITIAL ASSESSMENT DONE. VITAL SIGNS CHECKED. PT DENIES ANY PAIN. PT ASKING IF HE'S GOING HOME TONIGHT. INFORMED PT THAT PSYCHIATRIST CLEARED HIM, JUST WAITING FOR MEDICAL DOCTOR TO CLEAR HIM WELL. PT VERBALIZED UNDERSTANDING. SAFETY ENSURED. SITTER DISCONTINUED PER PSYCHIATRIST ORDER.
[2017-05-29] MEDS ORDERED: QUET200T PO (20:16)
[2017-05-29] MEDS ORDERED: LORA-476 PO (20:16)
[2017-05-29] MEDS ORDERED: PAX20 PO (20:16)
--- NOTE | 2017-05-29 20:17 | NUR ---
PT ASKING FOR HIS ATIVAN. PT GIVEN ATIVAN PO ORDERED W/ TEACHINGS. PT KEPT COMFORTABLE.
[2017-05-29 20:43] VITALS: BP 111/72
[2017-05-29] MEDS ORDERED: LORazepam 1 MG TAB PO SCH (21:00)
--- NOTE | 2017-05-29 21:15 | NUR ---
PT GIVEN DISCHARGE INSTRUCTIONS AND PRESCRIPTION. PT VERBALIZED UNDERSTANDING. PT SIGNED DISCHARGE DOCUMENTS. PT WILL DRESS UP WHEN COMES.
--- NOTE | 2017-05-29 21:35 | NUR ---
PT LEFT WALKING ACCOMPANIED BY SPOUSE AND MARY JANE RAY.
[2017-05-30] MEDS ORDERED: PARoxetine 10 MG TAB PO SCH (09:00)
== END 2017-05-29 21:30 | disposition home or self-care (01) | DRG 775 ==
LOC: MED 09:27 → MTU 17:42
PROVIDERS: ADMIT Family Medicine Sports Medicine; ATTEND Family Medicine Sports Medicine
DX: F10.229 Alcohol dependence with intoxication, unspecified (principal); G92 Toxic encephalopathy; R45.851 Suicidal ideations; F33.3 Major depressive disorder, recurrent, severe with psychotic symptoms; E87.8 Other disorders of electrolyte and fluid balance, not elsewhere classified; T43.621A Poisoning by amphetamines, accidental (unintentional), initial encounter; F15.129 Other stimulant abuse with intoxication, unspecified; E83.51 Hypocalcemia; F41.0 Panic disorder [episodic paroxysmal anxiety]; Y90.1 Blood alcohol level of 20-39 mg/100 ml; I10 Essential (primary) hypertension; F41.9 Anxiety disorder, unspecified; F17.210 Nicotine dependence, cigarettes, uncomplicated; E78.1 Pure hyperglyceridemia; E66.9 Obesity, unspecified; Z68.35 Body mass index [BMI] 35.0-35.9, adult; Y92.89 Other specified places as the place of occurrence of the external cause; Z71.51 Drug abuse counseling and surveillance of drug abuser; Z71.41 Alcohol abuse counseling and surveillance of alcoholic
CPT/HCPCS: 36415; 71045; 80048; 80053; 80305; 81001; 82140; 82150; 82550; 83036; 83690; 83735; 83880; 84100; 84439; 84443; 84478; 84484; 85025; 85610; 85730; 87081; 93005; 99285; G0480; G0482; J1630; J2060; J7030; Q0092

== ENCOUNTER 2017-12-30 02:14 | Emergency (ER) | payer SELFPAY ==
[~2017-12-30] VITALS: Ht 175.3 cm; Wt 104.3 kg
[~2017-12-30 02:14] MED LIST: PAX20 PO; QUET25TA46 PO
--- NOTE | 2017-12-30 02:16 | NUR ---
PT IVAN BLS. TAKEN TO BED 8
[2017-12-30 02:19] VITALS: BP 121/67
--- NOTE | 2017-12-30 02:20 | NUR ---
BIBA DUE TO ALOC. FAMILY CALLED [facility] DUE TO PT NOT TAKING HIS MEDICATION FOR SCHIZOPHRENIA IN 3 WEEKS. PT IS ETOH.DENIES N/V/D; SKIN IS PINK/WARM/DRY; LUNGS CLEAR BL; HR TACHY 130-140 PRIOR TO COMING TO ER/ PER MEDICS;KNA AND MEDICAL HX IS SCHIZOPHRENIA/NON COMPLIANT WITH MEDICATION AND DEPRESSION. STATED HE HAS A HYX OF USING METH. PATIENT STATES PAIN OF 0/10 AT THIS TIME; VSS; PATIENT POSITIONED FOR COMFORT; HOB ELEVATED; BEDRAILS UP X2; BED DOWN. ER MD MADE AWARE OF PT STATUS.
--- NOTE | 2017-12-30 02:25 | NUR ---
PT IS AGITATED AND DOES NOT WANT TO STAY IN HOSPTIAL, NOTIFIED.
[2017-12-30] MEDS ORDERED: NACL 0.9% 1,000 ML IV ONE (02:30)
[2017-12-30 02:37] VITALS: BP 121/67
--- NOTE | 2017-12-30 02:37 | NUR ---
Patient does not wish to proceed with medical care recommended by DR. WEINSTEIN. Patient given information related to possible complications, up to and including , which could occur as a result of leaving hospital at this time. Patient verbalizes understanding of risks involved leaving against medical advice. Patient has signed AMA form.
--- NOTE | 2017-12-30 03:36 | NUR ---
Note kate in EDM - 12/30/17 at 0339 by [email or web address] Patient does not wish to proceed with medical care recommended by DR. WEINSTEIN. Patient given information related to possible complications, up to and including , which could occur as a result of leaving hospital at this time. Patient verbalizes understanding of risks involved leaving against medical advice. Patient has signed AMA form.
== END 2017-12-30 02:37 | disposition left against medical advice (07) ==
LOC: MED 02:14
DX: R40.4 Transient alteration of awareness (principal); F10.129 Alcohol abuse with intoxication, unspecified; Z79.899 Other long term (current) drug therapy
CPT/HCPCS: 99281